=== PATIENT | male | born 1950 | race Caucasian/White ===

== ENCOUNTER 2018-02-27 06:16 | Observation (INO) | payer BC ==
[2018-02-27] MEDS ORDERED: ASPIRIN EC 325 MG TAB PO ONE (06:18)
[2018-02-27] MEDS ORDERED: NS 1,000 ML IV ONE (06:18)
[2018-02-27] MEDS ORDERED: DIAZEPAM 5 MG TAB PO ONE (06:18)
[2018-02-27] MEDS ORDERED: FAMOTIDINE 20 MG TAB PO ONE (06:18)
[2018-02-27] MEDS ORDERED: diphenhydrAMINE 25 MG CAP PO ONE (06:18)
[2018-02-27] MEDS ORDERED: CLOPIDOGREL BISULFATE 75 MG TAB ONE (06:33)
--- NOTE | 2018-02-27 06:42 | PDPROPOC ---
Sedation Plan of Care Sedation Plan of Care: mental status noted, patient educated of risks, benefits , alternatives, patient can tolerate sedation ASA Classification: ASA 2 Planned drugs: fentanyl, midazolam Mallampati Score: Class 2 Mallampati Reference Image: Patient passed 3-3-2 rule?: Yes
--- NOTE | 2018-02-27 06:42 | PDHPUP ---
History & Physical Update H&P update statement: This history and physical update is based on an assessment of the patient which was completed after admission or registration (within 24 hours), but prior to the surgery/procedure. H&P update: H&P reviewed & patient examined, no change in patient's condition since H&P completed
[2018-02-27] MEDS ORDERED: CLOPIDOGREL BISULFATE 75 MG TAB PO ONE (06:45)
[2018-02-27 06:53] LABS: PLATELET COUNT 248 10^3/uL (150-400)
[2018-02-27 07:02] LABS: INR 0.89 (0.83-1.16); PROTIME(PATIENT) 12.3 SEC (12.0-15.0)
[2018-02-27] MEDS ORDERED: LIDOCAINE 1% 300 MG/30 ML SDV ONE (07:11)
[2018-02-27] MEDS ORDERED: fentaNYL 100 MCG/2 ML INJ ONE (07:11)
[2018-02-27] MEDS ORDERED: MIDAZOLAM 2 MG/2 ML VIAL ONE (07:12)
[2018-02-27] MEDS ORDERED: IOPAMIDOL (ISOVUE-370) 150 ML BTL IV ONE (07:12)
[2018-02-27] MEDS ORDERED: BIVALIRUDIN 250 MG/5 ML VIAL IV ONE (07:37)
[2018-02-27] MEDS ORDERED: EPINEPHrine 1 MG/10 ML SYR IVP ONE (07:51)
[2018-02-27] MEDS ORDERED: NITROGLYCERIN 1,500 MCG/15 ML VIAL MISC ONE (07:51)
[2018-02-27] MEDS ORDERED: TEMAZEPAM 15 MG CAP PO PRN (08:22)
[2018-02-27] MEDS ORDERED: ATROPINE SULFATE 1 MG/10 ML SYR IVP PRN (08:22)
[2018-02-27] MEDS ORDERED: HYDROCODONE/APAP 5/325 TAB PO PRN (08:22)
[2018-02-27] MEDS ORDERED: NITROGLYCERIN 0.4 MG BTL SL PRN (08:22)
[2018-02-27] MEDS ORDERED: ONDANSETRON 4 MG/2 ML VIAL IVP PRN (08:22)
[2018-02-27] MEDS ORDERED: OXYCODONE/APAP 5/325 TAB PO PRN (08:22)
[2018-02-27] MEDS ORDERED: LORazepam 2 MG/ML INJ IVP PRN (08:22)
[2018-02-27] MEDS ORDERED: LOSARTAN POTASSIUM 25 MG TAB PO SCH (09:00)
--- NOTE | 2018-02-27 09:27 | CPIP ---
DATE OF PROCEDURE: 02/27/2018 REASON FOR PROCEDURE: Unstable angina. PROCEDURE: 1. Nonselective right groin sheathogram as well as coronary angiography, left heart catheterization, and left angiogram. 2. Percutaneous coronary intervention of prox LAD utilizing Synergy 3.0 x 24 mm stent and 3.0 x 6 mm drug-eluting stent. Briefly, this is a 67-year-old male with history of previous PCIs in the past. The patient has been having worsening progressive anginal symptoms as an outpatient, which is classic related to his prior chest pain episodes. Given these findings, patient consented for left heart catheterization. After informed consent, the patient was brought to [facility] and the right groin was p repped and draped in sterile fashion. Using lidocaine, a short 6-Irish sheath in right a rtery verified angiographically. Through the 6-Irish sheath, a JL4 catheter was advanced to the lef t coronary artery. Images of left coronary artery revealed normal short left main. Left circumflex artery had mild plaque disease proximally, giving off a marginal 1 in its midportion, which had mild 20% to 30% disease proximally. The circumflex gave off a 2nd marginal 2 artery, which had a stent in its midportion, which had mild in-stent restenosis. Distally, the marginal artery appeared to be wi sheri patent. The AV groove circ had diffuse disease, but this was a thin, small vessel. The LAD had what appeared to be a 90% narrowing in its proximal portion, which appeared to be in a previously ei ther calcified or stented area. This is a 40% lesion just distal to this area and distally the LAD a ppeared to be widely patent. There was a small to medium diagonal artery coming off the midportion o f the LAD, which had no significant disease. After images obtained, the JL4 catheter was removed ove r the 5 wire. A JR4 catheter was advanced to the right coronary artery. Images of the right coronar y artery revealed normal ostial RCA. The mid RCA had a stent, was successfully stented with mild-to- moderate ISR. Distally, the RPDA and RPLS appear to be patent with only mild plaque disease. After i mages were obtained, the JR4 catheter was removed over the 0.035 wire. A pigtail catheter was then _ . LVEDP was 15 mmHg. Left ventriculogram obtained. The pressure showed EF of 65% with no wall motion abnormalities. There was no pull-back gradient between the LV and aorta. At this time, patient had been administered Plavix p.o. Started Angiomax bolus and drip. Utilizing the EBU 3.5 guide catheter, the left coronary artery was selectively engaged af ter the short 6-Irish sheath in the right groin was upsized to a 25 cm sheath. A Choice PT wire was placed down the LAD after Angiomax bolus and drip was started. Predilatation of the LAD commenced w ith a 3.0 x 15 compliant balloon at 12 atmospheres. After this was performed, the balloon was remove d. We then proceeded with stenting of the proximal LAD with a 3.0 x 24 Synergy stent which was deploy ed at high atmospheres to 16 atmospheres. After deployment, angiography obtained, which showed excel lent patency of the proximal stented region, however, there did appear to be slight edge step-down, p ossible dissection at the edge level of the distal stent where a 40% lesion was noted from before. W e decided to cover this area with a 3.0 x 16 Synergy stent deployed at 12 atmospheres with the overla p then inflated to 14 atmospheres after the stent deployment. After this was performed, angiographic images were obtained, which showed excellent patency of the stented region with no evidence of disse ction or perforation. This was verified in orthogonal views. The wire was removed. The guide david ter was removed over the 3.5 wire. The patient tolerated the procedure well with no complications. IMPRESSION: 1. Successful percutaneous coronary intervention of high-grade 90% proximal LAD disease with 2 Syner gy drug-eluting stents. 2. Patent stent in the marginal 2 artery of the left circumflex with only mild in-stent restenosis. 3. Mild to moderate ISR of the mid right coronary artery. 4. Normal ejection fraction. PLAN: The patient will remain on his aggressive medical therapy, which includes aspirin, Plavix, sta tin, and beta oswald. If the patient should have any continued symptoms, an FFR of the right perez ry artery, which has the [id number]-if-[id number] in-stent restenosis, could be done if needed in the future. Otherwise, we will continue with aggressive medical therapy. /[id number]/MODL
--- NOTE | 2018-02-27 11:58 | CPEKG ---
Test Reason : OPEN Blood Pressure : / mmHG Vent. Rate : 050 BPM Atrial Rate : 050 BPM P-R Int : 136 ms QRS Dur : 084 ms QT Int : 452 ms P-R-T Axes : 035 044 057 degrees QTc Int : 413 ms Sinus rhythm Probable left ventricular hypertrophy Confirmed by Rayray Jaime ([id number]) on 02/27/2018 11:57:36 AM Referred By: Confirmed By:Rayray Jaime
--- NOTE | 2018-02-27 12:00 | CPEKG ---
Test Reason : OPEN Blood Pressure : / mmHG Vent. Rate : 046 BPM Atrial Rate : 046 BPM P-R Int : 144 ms QRS Dur : 077 ms QT Int : 471 ms P-R-T Axes : 064 034 066 degrees QTc Int : 412 ms Sinus bradycardia Left ventricular hypertrophy Confirmed by Rayray Jaime ([id number]) on 02/27/2018 11:59:41 AM Referred By: Confirmed By:Rayray Jaime
[2018-02-27] MEDS: CLOPIDOGREL BISULFATE 75 MG TAB PO SCH (12:12)
[2018-02-27] MEDS: ASPIRIN 81 MG CHEWABLE TAB PO SCH (12:12)
[2018-02-27] MEDS: METOPROLOL SUCCINATE XR 25 MG TAB PO SCH (12:16)
[2018-02-27] MEDS: ISOSORBIDE MONONITRATE 30 MG TAB.SR PO SCH (12:17)
[2018-02-27] MEDS: ROSUVASTATIN CALCIUM 20 MG TAB PO SCH (12:17)
[2018-02-27] MEDS ORDERED: LOSARTAN POTASSIUM 50 MG TAB PO ONE (15:45)
[2018-02-28 04:07] LABS: PLATELET COUNT 237 10^3/uL (150-400)
[2018-02-28 07:53] VITALS: BP 152/92
[2018-02-28] MEDS: METOPROLOL SUCCINATE XR 25 MG TAB PO SCH (08:54)
[2018-02-28] MEDS: CLOPIDOGREL BISULFATE 75 MG TAB PO SCH (08:54)
[2018-02-28] MEDS: ASPIRIN 81 MG CHEWABLE TAB PO SCH (08:54)
[2018-02-28] MEDS: ROSUVASTATIN CALCIUM 20 MG TAB PO SCH (08:54)
[2018-02-28] MEDS: ISOSORBIDE MONONITRATE 30 MG TAB.SR PO SCH (08:55)
[2018-02-28] MEDS ORDERED: LOSARTAN POTASSIUM 50 MG TAB PO SCH (09:00)
--- NOTE | 2018-02-28 09:44 | GDS ---
DISCHARGE DIAGNOSES: 1. Coronary artery disease, post stenting to a proximal 90% LAD lesion with a 3.0 x 24 mm Synergy drug-eluting stent and a 3.0 x 16 mm Synergy drug-eluting stent. 2. Hyperlipidemia. 3. Hypertension. HOSPITAL COURSE: For detailed H and P, please see prior dictation. Briefly, Rubén is a 67-year-old male with a history of hypertension, hyperlipidemia, and coronary artery disease, status post multiple interventions in the past. He presented to our office complaining of crescendo angina, which was similar to his prior anginal pain. He developed chest tightness with exertion that was relieved with nitroglycerin and rest. He ultimately decided to proceed with an angiogram, which was performed by Dr. Jaime on February 27, 2018. He had mild diffuse disease within the left circumflex artery and right coronary artery. His left anterior descending artery had a proximal 90% lesion which was stented with a 3.0 x 24 mm and 3.0 x 16 mm overlapping Synergy drug-eluting stents. His left ventricular ejection fraction was normal at 65%. The procedure was uncomplicated. The following morning, the patient denied any significant discomfort of his right groin where access was obtained for the angiogram. He was monitored on telemetry and remained in normal sinus rhythm. His EKG the day of discharge revealed normal sinus rhythm. He has been hypertensive during his hospitalization with an average blood pressure of 160/80. A fasting lipid profile showed a cholesterol of 132, triglycerides 62, LDL 81, and an HDL of 39. PHYSICAL EXAMINATION: GENERAL: Patient appears in no acute distress. VITALS: Blood pressure 163/79, heart rate 49, oxygen saturation of 94% on room air, afebrile. LUNGS: Clear to auscultation. No wheezes, rhonchi, or crackles auscultated. CARDIAC: Regular rate and rhythm, without any murmurs, rubs, or gallops appreciated. EXTREMITIES: Right groin clean, intact, without any evidence of hematoma or infection. DISCHARGE MEDICATIONS: Imdur has been discontinued. He will begin Norvasc 5 mg daily. Crestor has been increased from 10 mg a day to 20 mg daily. He will continue aspirin 325 mg daily, Metoprolol-XL 25 mg daily, Plavix 75 mg daily, losartan 100 mg daily. PLAN: Rubén is currently stable and ready for discharge home. He has been given groin precautions. Norvasc has been added to his medical regimen secondary to hypertension. He will keep a blood pressure log over the next 7 days and bring it with him to his followup visit. Crestor has also been increased from 10 mg to 20 mg daily secondary to an elevated LDL of 81. Ideally , his LDL should be treated to 40-70. Lifestyle modifications have also been discussed with him today. He is interested in cardiac rehab, which I think is a great idea. He will follow up with Dr. Jaime as scheduled on 03/07 at 3 p.m. Greater than 30 minutes was spent coordinating the patients care today. /[id number]/MODL MTDD
--- NOTE | 2018-03-01 06:54 | CPEKG ---
Test Reason : OPEN Blood Pressure : / mmHG Vent. Rate : 055 BPM Atrial Rate : 055 BPM P-R Int : 133 ms QRS Dur : 085 ms QT Int : 449 ms P-R-T Axes : 040 049 071 degrees QTc Int : 430 ms Sinus rhythm Borderline T wave abnormalities Confirmed by Rayray Jaime ([id number]) on 03/01/2018 6:54:36 AM Referred By: Confirmed By:Rayray Jaime
== END 2018-02-28 11:00 | disposition home or self-care (01) ==
LOC: FCATH 06:16 → F2W 08:22
PROVIDERS: ADMIT Internal Medicine Cardiovascular Disease; ATTEND Internal Medicine Cardiovascular Disease
PROC: B2111ZZ Fluoroscopy of Multiple Coronary Arteries using Low Osmolar Contrast (ICD-10-PCS; principal; 2018-02-27)
PROC: 027035Z Dilation of Coronary Artery, One Artery with Two Drug-eluting Intraluminal Devices, Percutaneous Approach (ICD-10-PCS; principal; 2018-02-27)
PROC: B2151ZZ Fluoroscopy of Left Heart using Low Osmolar Contrast (ICD-10-PCS; principal; 2018-02-27)
PROC: 4A023N7 Measurement of Cardiac Sampling and Pressure, Left Heart, Percutaneous Approach (ICD-10-PCS; principal; 2018-02-27)
DX: I25.110 Atherosclerotic heart disease of native coronary artery with unstable angina pectoris (principal); T82.857A Stenosis of other cardiac prosthetic devices, implants and grafts, initial encounter; I10 Essential (primary) hypertension; E78.5 Hyperlipidemia, unspecified
CPT/HCPCS: 92928; 93005; 93458; C1725; C1769; C1887; G0378; C1760; C1874; C9600; J0583; J1644; J2250; J3010; Q9967

== ENCOUNTER → 2018-10-25 | Outpatient (CLI) | payer BC, OTHER | LOC: CIMAGING 08:08 | PROVIDERS: ATTEND Internal Medicine | DX: M19.021 Primary osteoarthritis, right elbow (principal) | CPT/HCPCS: 73080-PO ==